=== PATIENT | female | born 1995 | race Caucasian/White ===

== ENCOUNTER 2018-01-16 17:30 | Emergency (ER) | payer OTHER ==
[2018-01-16 17:38] VITALS: BP 120/75
--- NOTE | 2018-01-16 17:54 | ED Physician Documentation ---
History of Present Illness - Stated complaint Stated Complaint: FEMALE - Chief complaint Chief Complaint: General - History obtained from History obtained from: Patient - History of Present Illness Timing: Other (She was at [employer] 4 days ago and felt painful swelling on R side of vagina, worsening. No fever or dischg. IUD in place.) Review of Systems Constitutional: denies: Fever, Chills Respiratory: reports: Reviewed and negative GI: reports: Reviewed and negative : reports: Reviewed and negative PD PAST MEDICAL HISTORY - Present Medications Home Medications: Ambulatory Orders Medication Instructions Recorded Confirmed Sulfamethoxazole/Trimethoprim 1 each PO BID #20 tablet 01/16/18 [Sulfamethoxazole-Tmp Ds Tablet] - Allergies Allergies/Adverse Reactions: Allergies Allergy/AdvReac Type Severity Reaction Status Date / Time latex Allergy Rash Verified 01/16/18 17:38 PD ED PE NORMAL - Vitals Vital signs reviewed: Yes - General General: Alert and oriented X 3, No acute distress - Abdomen Abdomen: Soft, Non tender - Female Female : Sewer Hand present (Anisha Bennett RN), Other (R Bartholins cyst, v small and completely expressed without incision during exam) - Derm Derm: No rash - Neuro Neuro: Alert and oriented X 3, Normal speech - Psych Psych: Normal mood, Normal affect Results - Vitals Vitals: Vital Signs - 24 hr 01/16/18 17:35 Temperature 37.1 C Heart Rate 75 Respiratory 16 Rate Blood Pressure 120/75 O2 Saturation 100 Oxygen O2 Source Room air PD MEDICAL DECISION MAKING - ED course ED course: She has a very small Bartholin's cyst abscess on the right, it was completely and easily expressed using only digital manipulation without incision and it was too small for a Word catheter. - Sepsis Event Vital Signs: Vital Signs - 24 hr 01/16/18 17:35 Temperature 37.1 C Heart Rate 75 Respiratory 16 Rate Blood Pressure 120/75 O2 Saturation 100 Oxygen O2 Source Room air Departure - Departure Disposition: 01 Home, Self Care Clinical Impression: Bartholin's cyst Condition: Good Record reviewed to determine appropriate education?: Yes Instructions: ED Bartholins Cyst No Infec Follow-[facility]: [facility] [Provider Group] Prescriptions: Sulfamethoxazole/Trimethoprim [Sulfamethoxazole-Tmp Ds Tablet] 1 each PO BID # 20 tablet
[2018-01-16] MEDS ORDERED: SULFAMETH/TRIMETH DS 800/160 MG TABLET PO STA (18:06)
== END 2018-01-16 18:29 | disposition home or self-care (01) ==
LOC: ED 17:30
DX: N75.0 Cyst of Bartholin's gland (principal); Z97.5 Presence of (intrauterine) contraceptive device
CPT/HCPCS: 99283; A9270

== ENCOUNTER 2020-04-18 21:22 | Emergency (ER) | payer OTHER ==
--- NOTE | 2020-04-18 21:30 | ED Physician Documentation ---
PD HPI URI - Stated complaint Stated Complaint: COUGH,MCGOWAN,BACK PX,DIARRHEA - History obtained from History obtained from: Patient - History of Present Illness Timing - onset: How many days ago (3) Timing duration: Days (3) Timing details: Gradual onset, Still present Associated symptoms: Nasal congestion, Dry cough, Chest pain (left upper lobe area (anterior chest and scapular area) with breathing and coughing). No: Fever Contributing factors: Sick contact, Travel (She and boyfriend traveled to [place] Apr 05 and returned few days ago. Stayed in [facility]. Not around sick people. Boyfriend with congestion/sore throat for a day and is improved. Pt with sore throat, congestion and increased cough. Now hurting left chest with cough.) Similar symptoms before: Has not had sx before Recently seen: Not recently seen Review of Systems Constitutional: reports: Myalgias. denies: Fever, Chills Nose: reports: Rhinorrhea / runny nose, Congestion Throat: reports: Sore throat Cardiac: reports: Chest pain / pressure (left upper chest area) Respiratory: reports: Cough. denies: Dyspnea, Wheezing GI: reports: Nausea. denies: Vomiting, Diarrhea : denies: Dysuria Musculoskeletal: denies: Neck pain Neurologic: denies: Altered mental status, Headache PD PAST MEDICAL HISTORY - Past Medical History Cardiovascular: None Respiratory: None Neuro: None Endocrine/Autoimmune: None - Past Surgical History Past Surgical History: No - Present Medications Home Medications: Ambulatory Orders Medication Instructions Recorded Confirmed Sulfamethoxazole/Trimethoprim 1 each PO BID #20 tablet 01/16/18 [Sulfamethoxazole-Tmp Ds Tablet] Benzonatate [Tessalon] 100 mg PO TID PRN #20 capsule 04/18/20 dexAMETHasone [Decadron] 4 mg PO DAILY #5 tablet 04/18/20 - Allergies Allergies/Adverse Reactions: Allergies Allergy/AdvReac Type Severity Reaction Status Date / Time latex Allergy Rash Verified 04/18/20 21:32 - Social History Does the pt smoke?: Yes Smoking Status: Current every day smoker Does the pt drink ETOH?: No Does the pt have substance abuse?: No - Immunizations Immunizations are current?: Yes - POLST Patient has POLST: No PD ED PE NORMAL - Vitals Vital signs reviewed: Yes - General General: Alert and oriented X 3, No acute distress, Well developed/nourished - HEENT HEENT: Ears normal, Moist mucous membranes, Pharynx benign - Neck Neck: Supple, no meningeal sign, No adenopathy - Cardiac Cardiac: RRR, No murmur - Respiratory Respiratory: Clear bilaterally, Other (no chestwall tenderness) - Abdomen Abdomen: Soft, Non tender - Derm Derm: Normal color, Warm and dry - Neuro Neuro: Alert and oriented X 3, No motor deficit, Normal speech (no hoarseness) Results - Vitals Vitals: Vital Signs - 24 hr 04/18/20 04/18/20 21:32 23:04 Temperature 36.5 C 36.8 C Heart Rate 60 70 Respiratory 16 18 Rate Blood Pressure 123/77 114/84 H O2 Saturation 99 97 Oxygen O2 Source Room air - Rads (name of study) No standard instances Radiology: Prelim report reviewed (no infiltrates nor PTX. ), See rad report PD MEDICAL DECISION MAKING - ED course Complexity details: reviewed results (no pneumonia nor PTX. presume some pleurisy. COVID testing done. She and her boyfriend are in quarantine for 10 days due to their travel anyway, so no need for work restrictions. ), considered differential (seems likely viral URI. CXR is clear. Test for COVID. Can treat with decadron and tessalon. Does not have wheezing. ), d/w patient Departure - Departure Disposition: 01 Home, Self Care Clinical Impression: Pleuritic chest pain Upper respiratory infection Qualifiers: URI type: unspecified URI Qualified Code(s): J06.9 - Acute upper respiratory infection, unspecified Condition: Stable Instructions: ED Upper Resp Infec No Abx Tx Follow-Up: [facility] [Provider Group] Prescriptions: dexAMETHasone [Decadron] 4 mg PO DAILY #5 tablet Benzonatate [Tessalon] 100 mg PO TID PRN #20 capsule PRN Reason: Cough Comments: You have a Covid test pending. You need to self quarantine until the result is done and negative. Do not leave your house. Do not get near anybody. The results should be done in 48 to 72 hours, but sometimes longer. We will call with a positive result, the fastest way to get a negative result for confirmation though is to go to the hospital website at [email or web address], click on the my [facility] tab and sign up for the patient portal. If any friends or family get sick and would like to have a Covid test done, but do not have signs or symptoms that would necessitate being hospitalized, we encourage testing through our coronavirus swabbing station, call [phone] to schedule an appointment. A well-hydrated. Tylenol or ibuprofen as needed for pains. You can use Tessalon if needed for cough to help suppress that and decrease it. Decadron s teroid for the inflammation to decrease the cough and the pain in the chest. Your chest x-ray appears clear and I presume the pain in the chest is from inflammation around the lung or in the chest wall related to the illness and coughing. I would anticipate this improving in the next couple of days. Discharge Date/Time: 04/18/20 23:04
[2020-04-18] MEDS ORDERED: DEXAMETHASONE 10 MG/ML VIAL PO STA (22:03)
[2020-04-18] MEDS ORDERED: BENZONATATE 100 MG CAPSULE PO STA (22:03)
[2020-04-18] MEDS ORDERED: CHERRY SYRUP 10 ML UDC PO ONE (22:03)
[2020-04-18] MEDS ORDERED: ACETAMINOPHEN 325 MG TABLET PO STA (22:03)
[2020-04-18 23:08] VITALS: BP 114/84
--- NOTE | 2020-04-19 08:18 | XRAY Report ---
PROCEDURE: Chest 1 View X-Ray INDICATIONS: chest pain left upper; cough TECHNIQUE: One view of the chest was acquired. COMPARISON: None FINDINGS: Surgical changes and devices: None. Lungs and pleura: No pleural effusions or pneumothorax. Lungs are clear. Mediastinum: Mediastinal contours appear normal. Heart size is normal. Bones and chest wall: No suspicious bony lesions. Overlying soft tissues appear unremarkable. IMPRESSION: No evidence acute pulmonary process. A preliminary report with the above findings was provided at the time of the study by [facility]. Reviewed by: Ian Randhawa MD on 04/19/2020 8:16 AM [facility] Approved by: Ian Randhawa MD on 04/19/2020 8:16 AM PST Station ID: [id number]
== END 2020-04-18 23:04 | disposition home or self-care (01) ==
LOC: ED 21:22
DX: U07.1 COVID-19 (principal); R07.9 Chest pain, unspecified; F17.200 Nicotine dependence, unspecified, uncomplicated
CPT/HCPCS: 71045; 87635; 99284; A9270